=== PATIENT | female | born 1995 | race Caucasian/White ===

== ENCOUNTER 2019-01-28 05:30 | Inpatient (IN) | payer BC ==
[2019-01-28 16:57] VITALS: BMI 30.1
[2019-01-28] MEDS ORDERED: Butorphanol Tartrate 1 MG/ML VIAL SLOW IVP PRN (18:00)
[2019-01-28] MEDS ORDERED: Penicillin G Potassium 5 MILL.UNITS in Sodium Chloride 0.9% 100 ML IVPB SCH (18:00)
[2019-01-28] MEDS ORDERED: NS / Oxytocin 40 units/1000ml 1,000 ML IV PRN (18:00)
[2019-01-28] MEDS ORDERED: Ibuprofen 800 MG TAB PO PRN (18:00)
[2019-01-28] MEDS ORDERED: Lidocaine 1% (PF) 30 ML VIAL SC PRN (18:00)
[2019-01-28] MEDS ORDERED: Misoprostol 100 MCG TAB VAG SCH (18:00)
[2019-01-28] MEDS ORDERED: HYDROcodone/Acetaminophen 5/325 mg Tablet PO PRN (18:00)
[2019-01-28] MEDS ORDERED: Ondansetron PF 4 MG/2 ML Vial IVP PRN (18:00)
[2019-01-28] MEDS ORDERED: Misoprostol 100 MCG TAB ONE (18:09)
[2019-01-28 18:12] LABS: Hemoglobin 9.4 g/dL (12.0-16.0); Mean Corpuscular HGB CONC 32.5 g/dL (32.0-36.0); Mean Corpuscular Hemoglobin 28.9 pg (27.0-31.0); Mean Platelet Volume 8.5 fL (7.4-10.4); Platelet Count 230 thou/uL (130-400); RBC Distribution Width 13.5 % (11.5-14.5); Red Blood Cell (RBC) Count 3.27 mill/uL (4.20-5.40); White Blood Cell (WBC) Count 8.2 thou/uL (4.8-10.8)
[2019-01-28 18:51] LABS: Syphilis Antibody Nonreactive (Nonreactive); Syphilis Antibody Index 0.05 S/CO (<1.00 Non-Reactive)
[2019-01-28 18:53] LABS: HBSAg Index 0.22 S/CO (0-0.99); Hep B Surf Ag Non-Reactive S/CO (NonReactive)
[2019-01-28] MEDS ORDERED: NS w/ Oxytocin 10 units 500 ML IV SCH (21:30)
[2019-01-29] MEDS ORDERED: Fentanyl 4 mcg/Bup 0.1% Cadd 100 ML ONE ×2 (00:09→07:01)
[2019-01-29] MEDS ORDERED: Lidocaine 1.5%/Epinephrine 1:200,000 5 ML AMPUL IJ ONE (00:10)
[2019-01-29] MEDS ORDERED: Fentanyl 100 MCG/2 ML VIAL ONE (00:19)
[2019-01-29] MEDS: Penicillin G 2.5 MILL.units 2.5 MILL.UNITS in Premix Bag 1 BAG IVPB SCH ×3 (01:46→19:34)
[2019-01-29] MEDS ORDERED: Ondansetron PF 4 MG/2 ML Vial IVP PRN (02:12)
[2019-01-29] MEDS ORDERED: diphenhydrAMINE 50 MG/ML VIAL IVP PRN (02:12)
[2019-01-29] MEDS ORDERED: ePHEDrine/0.9% NaCl/PF SYRINGE 50 mg/10 ml SLOW IVP PRN (02:12)
[2019-01-29] MEDS ORDERED: Lactated Ringer's 500 ML IV PRN (02:12)
[2019-01-29] MEDS ORDERED: Promethazine HCl 25 MG/ML VIAL IM PRN (02:12)
[2019-01-29] MEDS ORDERED: Naloxone HCl 0.4 mg/ml Vial IVP PRN ×2 (02:12)
[2019-01-29] MEDS ORDERED: Acetaminophen 325 MG TAB PO PRN (02:12)
[2019-01-29] MEDS ORDERED: Communication Order-Pharmacy FS SCH (02:15)
[2019-01-29] MEDS ORDERED: Fentanyl 4 mcg/Bupivacaine 0.1% Cassette 100 ML EPIDURAL SCH (02:15)
[2019-01-29] MEDS ORDERED: Methylergonovine 0.2 MG/ML VIAL ONE (09:09)
[2019-01-29] MEDS ORDERED: Misoprostol 200 MCG TAB ONE (09:09)
[2019-01-29] MEDS ORDERED: Bisacodyl 10 MG SUPP PR PRN (10:32)
[2019-01-29] MEDS ORDERED: NS / Oxytocin 40 units/1000ml 1,000 ML IV SCH (10:32)
[2019-01-29] MEDS ORDERED: HYDROcodone/Acetaminophen 5/325 mg Tablet PO PRN (10:32)
[2019-01-29] MEDS ORDERED: Milk Of Magnesia 30 ML UDCUP PO PRN (10:32)
[2019-01-29] MEDS ORDERED: Lanolin Ointment 7 GM TUBE TOP PRN (10:32)
[2019-01-29] MEDS ORDERED: Terbutaline Sulfate 1 MG/ML VIAL ONE (11:11)
[2019-01-29] MEDS ORDERED: Bupivacaine/Epinephrine 0.25% 30 ML VIAL ONE (11:11)
[2019-01-29] MEDS ORDERED: Bupivacaine 0.25% HCL 30 ML VIAL ONE (11:11)
[2019-01-29] MEDS: Ibuprofen 800 MG TAB PO SCH ×2 (12:46→21:37)
[2019-01-29] MEDS ORDERED: Sodium Chloride 0.9% 10 ML ONE (14:48)
[2019-01-29] MEDS: Ferrous Sulfate 325 MG TAB PO SCH (16:37)
[2019-01-29] MEDS: Docusate Calcium (SURFAK) 240 MG CAP PO SCH (21:37)
[2019-01-30] MEDS: Ibuprofen 800 MG TAB PO SCH (05:48)
[2019-01-30 07:30] LABS: Hemoglobin 9.7 g/dL (12.0-16.0); Mean Corpuscular HGB CONC 32.7 g/dL (32.0-36.0); Mean Corpuscular Hemoglobin 29.2 pg (27.0-31.0); Mean Corpuscular Volume 89.4 fL (78.0-98.0); Mean Platelet Volume 8.5 fL (7.4-10.4); Platelet Count 205 thou/uL (130-400); RBC Distribution Width 13.4 % (11.5-14.5); Red Blood Cell (RBC) Count 3.32 mill/uL (4.20-5.40); White Blood Cell (WBC) Count 11.2 thou/uL (4.8-10.8)
[2019-01-30] MEDS: Docusate Calcium (SURFAK) 240 MG CAP PO SCH (09:31)
[2019-01-30] MEDS: Ferrous Sulfate 325 MG TAB PO SCH (09:31)
[2019-01-30 09:59] VITALS: BP 100/63; TEMP 97.9
--- NOTE | 2019-01-30 10:29 | PDOC.PP ---
Post Progress Note Post Day #: 1 Subjective: No complaints, feeling well, lochia normal, well PO intake tolerated: yes Flatus: yes Ambulation: yes Vital Signs (12 hours) Temp Pulse Resp BP Pulse Ox 01/30/19 08:00 97.9 F 67 18 100/63 98 01/30/19 05:45 98.0 F 65 16 97/55 L 01/29/19 23:50 98.0 F 73 16 108/58 L Weight Weight 170 lb - Physical Examination General: NAD Cardiovascular: no m/r/g, RRR Respiratory: clear to auscultation bilaterally, non-labored breathing Abdominal: + bowel sounds, lochia, no distention, appropriately TTP Result Diagrams: 01/30/19 07:13 Additional Labs: Post Labs Blood Type A POSITIVE 01/28/19 16:46 Hep Bs Antigen Non-Reactive S/CO (NonReactive) 01/28/19 16:46 (1) Vaginal delivery Code(s): O80 - ENCOUNTER FOR FULL-TERM UNCOMPLICATED DELIVERY Status: Acute - Assessment/Plan Routine PP care D/C home F/U in 6 weeks
--- NOTE | 2019-01-30 10:31 | PDOC.OPDEL ---
OB Operative/Delivery Note Delivery Dr/Surgeon: Micha Pre-Delivery Diagnosis: active labor, elective induction Procedure/Post Delivery Dx: spontaneous vaginal delivery Weeks gestation: 39 Anesthesia: epidural - Findings A Sex: female - 1 min: 9 - 5 min: 10 - Additional Findings/Plan Placenta delivered: spontaneous Repaired Obstetrical Laceration: 1st degree Estimated blood loss: 210 Compilations/Other Findings: None Post delivery plan: routine recovery
== END 2019-01-30 12:35 | disposition home or self-care (01) | DRG 806 ==
LOC: L&D 15:29 → 3SW 01-29 14:12
PROVIDERS: ADMIT Family Medicine; ATTEND Family Medicine
PROC: 10E0XZZ Delivery of Products of Conception, External Approach (ICD-10-PCS; principal; 2019-01-29)
PROC: 3E0P7VZ Introduction of Hormone into Female Reproductive, Via Natural or Artificial Opening (ICD-10-PCS; 2019-01-29)
PROC: 3E033VJ Introduction of Other Hormone into Peripheral Vein, Percutaneous Approach (ICD-10-PCS; 2019-01-29)
PROC: 0HQ9XZZ Repair Perineum Skin, External Approach (ICD-10-PCS; 2019-01-29)
DX: O99.824 Streptococcus B carrier state complicating childbirth (principal); O98.52 Other viral diseases complicating childbirth; B00.9 Herpesviral infection, unspecified; Z3A.39 39 weeks gestation of pregnancy; Z37.0 Single live birth; O70.0 First degree perineal laceration during delivery
CPT/HCPCS: 36415; 85027; 86780; 86850; 86900; 86901; 87340; J2210; J2540; J2590; J3010; J3105; J3490; S0020